=== PATIENT | male | born 1980 | race Caucasian/White ===

== ENCOUNTER 2019-03-23 10:15 | Day surgery (SDC) | payer BC ==
[2019-03-22 16:44] VITALS: BMI 41.0
[2019-03-23] MEDS ORDERED: Sodium Chloride 0.9% 100 ML ONE (10:38)
[2019-03-23] MEDS ORDERED: cefOXitin 2 GM VIAL ONE (10:38)
[2019-03-23] MEDS ORDERED: Bacitracin Zinc Ointment 30 gm TUBE ONE (10:43)
[2019-03-23] MEDS ORDERED: Bupivacaine/Epinephrine 0.25% 30 ML VIAL ONE (10:43)
[2019-03-23] MEDS ORDERED: Fentanyl 100 MCG/2 ML VIAL ONE (10:44)
[2019-03-23] MEDS ORDERED: Midazolam HCl 2 mg/2 ml Vial ONE (10:55)
== END 2019-03-24 11:03 | disposition home or self-care (01) ==
LOC: SDC 10:15
PROVIDERS: ATTEND Surgery
DX: L02.215 Cutaneous abscess of perineum (principal); Z53.8 Procedure and treatment not carried out for other reasons
CPT/HCPCS: J0694; J2250; J3010; J3490

== ENCOUNTER 2022-08-28 13:07 | Emergency (ER) | payer BC, OTHER ==
[~2022-08-28 13:07] MED LIST: Iopamidol-370 76% 500 ML 1 ML ONE
[2022-08-28 14:04] LABS: #Basophils 0.1 thou/uL (0.0-0.2); #Eosinphils 0.2 thou/uL (0.0-0.7); #Lymphocytes 2.8 thou/uL (1.20-3.40); #Monocytes 0.9 thou/uL (0.11-0.59); %Basophils 0.9 % (0.0-1.0); %Eosinophils 2.3 % (0.0-10.0); %Lymphocytes 31.3 % (21.0-51.0); %Monocytes 9.8 % (0.0-10.0); %Neutrophils 55.8 % (42.0-75.0); Mean Corpuscular HGB CONC 35.2 g/dL (32.0-36.0); Mean Corpuscular Hemoglobin 32.4 pg (27.0-31.0); Mean Corpuscular Volume 92.1 fl (78.0-98.0); Mean Platelet Volume 6.8 fL (7.4-10.4); Platelet Count 250 10x3/uL (130-400); RBC Distribution Width 11.7 % (11.5-14.5); Red Blood Cell (RBC) Count 5.24 mill/uL (4.70-6.10); White Blood Cell (WBC) Count 8.9 10x3/uL (4.8-10.8)
[2022-08-28 14:30] LABS: ALT (SGPT) 35 U/L (8-55); AST (SGOT) 23 U/L (5-34); Albumin 3.9 g/dL (3.5-5.0); Alkaline Phosphatase 74 U/L (40-110); Anion Gap 16 mmol/L (10-20); BUN (Urea Nitrogen) 16 mg/dL (8.9-20.6); Bilirubin, Total 0.7 mg/dL (0.2-1.2); Calc. Creatinine Clearance 0 mL/min (70-130); Calcium 9.4 mg/dL (7.8-10.44); Carbon Dioxide 23 mmol/L (22-29); Chloride 100 mmol/L (98-107); Estimated GFR 97; Glucose 280 mg/dL (70-105); Potassium 3.8 mmol/L (3.5-5.1); Protein, Total 6.9 g/dL (6.0-8.3); Sodium 135 mmol/L (136-145)
== END 2022-08-28 15:14 | disposition home or self-care (01) ==
LOC: ERS 13:07
DX: R79.89 Other specified abnormal findings of blood chemistry (principal); E11.9 Type 2 diabetes mellitus without complications; K21.9 Gastro-esophageal reflux disease without esophagitis; Z79.84 Long term (current) use of oral hypoglycemic drugs
CPT/HCPCS: 36415; 71045; 71275; 80053; 85025; 85379; Q9967

== ENCOUNTER 2022-09-05 14:02 | Outpatient (CLI) | payer BC, OTHER | END 2022-09-05 14:03 | disposition home or self-care (01) | LOC: DTY/OP 14:02 | PROVIDERS: ATTEND Family Medicine | DX: E11.9 Type 2 diabetes mellitus without complications (principal) | CPT/HCPCS: 97802 ==

== ENCOUNTER 2022-10-25 19:30 | Outpatient (CLI) | payer OTHER, BC | END 2022-10-25 19:31 | disposition home or self-care (01) | LOC: SLEEPLAB 19:30 | PROVIDERS: ATTEND Family Medicine | DX: G47.33 Obstructive sleep apnea (adult) (pediatric) (principal) | CPT/HCPCS: 95810 ==

== ENCOUNTER → 2022-11-11 | Outpatient (CLI) | payer BC | LOC: SLEEPLAB 19:30 | PROVIDERS: ATTEND Orthopaedic Surgery Foot and Ankle Surgery | DX: G47.33 Obstructive sleep apnea (adult) (pediatric) (principal) | CPT/HCPCS: 95811 ==

== ENCOUNTER 2022-11-22 17:19 | Inpatient (IN) | payer BC, OTHER ==
[~2022-11-22 17:19] MED LIST changes: -Iopamidol-370 76% 500 ML 1 ML ONE; +Iopamidol-370 76% 500 ML MDV (1 ML CHARGE) ONE
[2022-11-22 18:14] LABS: #Basophils 0.1 thou/uL (0.0-0.2); #Eosinphils 0.1 thou/uL (0.0-0.7); #Lymphocytes 3.5 thou/uL (1.20-3.40); #Neutrophils 9.6 thou/uL (1.40-6.50); %Basophils 0.6 % (0.0-1.0); %Eosinophils 1.1 % (0.0-10.0); %Lymphocytes 24.4 % (21.0-51.0); %Monocytes 6.9 % (0.0-10.0); %Neutrophils 67.1 % (42.0-75.0); Hemoglobin 15.6 g/dL (14.0-18.0); Mean Corpuscular HGB CONC 34.3 g/dL (32.0-36.0); Mean Corpuscular Hemoglobin 31.9 pg (27.0-31.0); Mean Platelet Volume 6.5 fL (7.4-10.4); Platelet Count 352 10x3/uL (130-400); White Blood Cell (WBC) Count 14.3 10x3/uL (4.8-10.8)
[2022-11-22] MEDS ORDERED: LORazepam 2 MG/ML SYR.(CARPUJECT) ONE (18:19)
[2022-11-22 18:38] LABS: ALT (SGPT) 20 U/L (8-55); AST (SGOT) 10 U/L (5-34); Albumin 4.2 g/dL (3.5-5.0); Alkaline Phosphatase 59 U/L (40-110); Anion Gap 12 mmol/L (10-20); BUN (Urea Nitrogen) 11 mg/dL (8.9-20.6); Bilirubin, Total 0.7 mg/dL (0.2-1.2); Calc. Creatinine Clearance 0 mL/min (70-130); Calcium 9.4 mg/dL (7.8-10.44); Carbon Dioxide 28 mmol/L (22-29); Chloride 106 mmol/L (98-107); Estimated GFR 107; Glucose 88 mg/dL (70-105); Potassium 3.6 mmol/L (3.5-5.1); Protein, Total 7.2 g/dL (6.0-8.3); Sodium 142 mmol/L (136-145)
[2022-11-22] MEDS ORDERED: Ondansetron PF 4 MG/2 ML Vial ONE (19:13)
[2022-11-22] MEDS ORDERED: Morphine 4 MG/ML VIAL ONE (19:13)
[2022-11-22] MEDS ORDERED: Ketorolac Tromethamine 30 MG/ML VIAL ONE (21:10)
[2022-11-22] MEDS ORDERED: Piperacillin/Tazobactam 4.5 GM VIAL ONE (21:59)
[2022-11-22] MEDS ORDERED: VANCOMYCIN 2 GRAM/500 ML BAG 2 GM in Premix Bag 1 BAG IVPB SCH (23:00)
[2022-11-22 23:34] VITALS: BMI 42.9
[2022-11-23] MEDS ORDERED: Acetaminophen 325 MG TAB PO PRN (00:07)
[2022-11-23] MEDS ORDERED: Ondansetron PF 4 MG/2 ML Vial IVP PRN (00:07)
[2022-11-23] MEDS ORDERED: Dextrose 50% Abboject 50 ML SYRINGE SLOW IVP PRN (00:09)
[2022-11-23] MEDS ORDERED: HumaLOG 300 UNITS/3 ML VIAL SC PRN ×2 (00:09)
[2022-11-23] MEDS ORDERED: Dextrose 5% in Water 1,000 ML IV PRN (00:09)
[2022-11-23] MEDS ORDERED: Piperacillin/Tazobactam 3.375 GM in Sodium Chloride 0.9% 100 ML IVPB SCH (02:00)
[2022-11-23] MEDS: HYDROcodone/Acetaminophen 5/325 mg Tablet PO PRN ×3 (06:02→20:06)
[2022-11-23] MEDS ORDERED: Lidocaine Jelly 2% Urojet 10 ML ONE (07:36)
[2022-11-23] MEDS ORDERED: Bupivacaine/Epinephrine 0.25% 30 ML VIAL ONE (07:36)
[2022-11-23] MEDS: Cefepime 2 GM in Sodium Chloride 0.9% 100 ML IVPB SCH ×2 (07:59→20:38)
[2022-11-23] MEDS: metroNIDAZOLE 500 MG in Premix Bag 1 BAG IVPB SCH ×2 (08:06→17:52)
[2022-11-23] MEDS ORDERED: Ondansetron HCl/PF 4 MG/2 ML Vial IVP PRN (08:50)
[2022-11-23] MEDS ORDERED: Promethazine HCl 25 MG/ML VIAL IM PRN (08:50)
[2022-11-23] MEDS ORDERED: fentaNYL PF 100 MCG/2 ML SYRINGE ONE (08:56)
[2022-11-23] MEDS ORDERED: Non-Formulary Item 1 EACH (Omeprazole [Omeprazole] 20 MG Capsule.Dr) PO SCH (09:00)
[2022-11-23] MEDS ORDERED: Midazolam HCl 2 mg/2 ml Vial ONE (09:12)
[2022-11-23] MEDS ORDERED: Lidocaine 1% PF 5 ML VIAL ONE (09:32)
[2022-11-23] MEDS ORDERED: Ketorolac Tromethamine 30 MG/ML VIAL ONE (09:32)
[2022-11-23] MEDS ORDERED: Ondansetron PF 4 MG/2 ML Vial ONE (09:32)
[2022-11-23] MEDS ORDERED: PROPOFOL 200 MG/20 ML VIAL ONE (09:32)
[2022-11-23] MEDS: VANCOMYCIN 1.75 GM/500 ML BAG 1.75 GM in Premix Bag 1 BAG IVPB SCH ×2 (11:43→23:58)
[2022-11-23 12:04] LABS: #Basophils 0.1 thou/uL (0.0-0.2); #Eosinphils 0.2 thou/uL (0.0-0.7); #Lymphocytes 2.7 thou/uL (1.20-3.40); #Monocytes 0.9 thou/uL (0.11-0.59); #Neutrophils 8.2 thou/uL (1.40-6.50); %Basophils 0.5 % (0.0-1.0); %Eosinophils 1.8 % (0.0-10.0); %Lymphocytes 22.5 % (21.0-51.0); %Monocytes 7.3 % (0.0-10.0); Hemoglobin 14.8 g/dL (14.0-18.0); Mean Corpuscular HGB CONC 33.4 g/dL (32.0-36.0); Mean Corpuscular Volume 95.7 fl (78.0-98.0); Mean Platelet Volume 6.4 fL (7.4-10.4); Platelet Count 325 10x3/uL (130-400); RBC Distribution Width 12.1 % (11.5-14.5); Red Blood Cell (RBC) Count 4.64 mill/uL (4.70-6.10); White Blood Cell (WBC) Count 12.1 10x3/uL (4.8-10.8)
[2022-11-23 12:12] LABS: Hemoglobin A1c 6.1 % (4.0-6.0)
[2022-11-23 12:23] LABS: Anion Gap 12 mmol/L (10-20); BUN (Urea Nitrogen) 12 mg/dL (8.9-20.6); Calc. Creatinine Clearance 155 mL/min (70-130); Calcium 8.3 mg/dL (7.8-10.44); Carbon Dioxide 25 mmol/L (22-29); Chloride 109 mmol/L (98-107); Estimated GFR 94; Glucose 90 mg/dL (70-105); Potassium 3.7 mmol/L (3.5-5.1); Sodium 142 mmol/L (136-145)
[2022-11-24] MEDS: HYDROcodone/Acetaminophen 5/325 mg Tablet PO PRN ×2 (00:35→05:12)
[2022-11-24] MEDS: metroNIDAZOLE 500 MG in Premix Bag 1 BAG IVPB SCH ×2 (01:17→10:28)
[2022-11-24 04:11] VITALS: TEMP 98.6
[2022-11-24 08:05] LABS: #Eosinphils 0.3 thou/uL (0.0-0.7); #Lymphocytes 2.7 thou/uL (1.20-3.40); #Monocytes 0.7 thou/uL (0.11-0.59); #Neutrophils 4.2 thou/uL (1.40-6.50); %Basophils 0.5 % (0.0-1.0); %Eosinophils 3.3 % (0.0-10.0); %Lymphocytes 34.2 % (21.0-51.0); %Monocytes 8.3 % (0.0-10.0); %Neutrophils 53.8 % (42.0-75.0); Hemoglobin 14.4 g/dL (14.0-18.0); Mean Corpuscular Hemoglobin 31.3 pg (27.0-31.0); Mean Corpuscular Volume 94.8 fl (78.0-98.0); Mean Platelet Volume 6.4 fL (7.4-10.4); Platelet Count 317 10x3/uL (130-400); RBC Distribution Width 12.1 % (11.5-14.5); Red Blood Cell (RBC) Count 4.59 mill/uL (4.70-6.10); White Blood Cell (WBC) Count 7.8 10x3/uL (4.8-10.8)
[2022-11-24] MEDS: Cefepime 2 GM in Sodium Chloride 0.9% 100 ML IVPB SCH (08:13)
[2022-11-24 08:40] VITALS: BP 150/93
[2022-11-24 09:01] LABS: Anion Gap 12 mmol/L (10-20); BUN (Urea Nitrogen) 12 mg/dL (8.9-20.6); Calc. Creatinine Clearance 150 mL/min (70-130); Calcium 8.2 mg/dL (7.8-10.44); Carbon Dioxide 24 mmol/L (22-29); Chloride 109 mmol/L (98-107); Estimated GFR 90; Glucose 104 mg/dL (70-105); Magnesium 2.1 mg/dL (1.6-2.6); Potassium 3.7 mmol/L (3.5-5.1); Sodium 141 mmol/L (136-145)
[2022-11-24] MEDS ORDERED: Morphine 2 MG/ML VIAL SLOW IVP PRN (10:11)
[2022-11-24] MEDS: HYDROcodone/Acetaminophen 10/325 mg Tablet PO PRN ×2 (10:27→16:33)
[2022-11-24] MEDS ORDERED: ALPRAZolam 0.25 MG TAB PO PRN (10:37)
[2022-11-24 10:44] LABS: Vancomycin, Trough 12.8 ug/mL
[2022-11-24] MEDS: VANCOMYCIN 1.75 GM/500 ML BAG 1.75 GM in Premix Bag 1 BAG IVPB SCH (12:18)
[2022-11-24] MEDS ORDERED: Doxycycline 100 MG CAP PO SCH ×2 (17:15→21:00)
[2022-11-24] MEDS ORDERED: Amoxicillin/Potassium Clav 875 MG TAB PO SCH ×2 (17:15→21:00)
== END 2022-11-24 18:50 | disposition home or self-care (01) | DRG 603 ==
LOC: ERS 17:19 → T4-B 22:54 → OBSVTOIN 11-23 00:15
PROVIDERS: ADMIT Internal Medicine; ATTEND Family Medicine
PROC: 0J9B0ZZ Drainage of Perineum Subcutaneous Tissue and Fascia, Open Approach (ICD-10-PCS; principal; 2022-11-23)
DX: L02.215 Cutaneous abscess of perineum (principal); Z68.41 Body mass index [BMI] 40.0-44.9, adult; E11.9 Type 2 diabetes mellitus without complications; K21.9 Gastro-esophageal reflux disease without esophagitis; G47.33 Obstructive sleep apnea (adult) (pediatric); E66.01 Morbid (severe) obesity due to excess calories; F41.9 Anxiety disorder, unspecified; F17.210 Nicotine dependence, cigarettes, uncomplicated; R00.1 Bradycardia, unspecified; Z79.899 Other long term (current) drug therapy; Z71.6 Tobacco abuse counseling
CPT/HCPCS: 36415; 36416; 72193; 74177; 80048; 80053; 80202; 83036; 83605; 83735; 85025; 87040; 87070; 87205; 96365; 96367; 96375; 96376; 97139; G0378; J0692; J1650; J1885; J2001; J2060; J2250; J2270; J2405; J2543; J2704; J3370; J3490; Q9967

== ENCOUNTER 2023-09-18 08:31 | Outpatient (CLI) | payer BC | END 2023-09-18 08:32 | disposition home or self-care (01) | LOC: BICMRI 08:31 | PROVIDERS: ATTEND Family Medicine | DX: M47.22 Other spondylosis with radiculopathy, cervical region (principal) | CPT/HCPCS: 72141 ==